=== PATIENT | female | born 1965 | race Caucasian/White ===

== ENCOUNTER 2021-12-08 17:35 | Emergency (ER) | payer BC ==
[2021-12-08 18:22] LABS: ANION GAP 7.8 meq/L (7-15); CHLORIDE,CL 102 mmol/L (98-107); ESTIMATED GFR 77 mL/min (>=60); SODIUM,NA 140 mmol/L (136-145)
[2021-12-08] MEDS ORDERED: Iopamidol 612 MG/ML 100 ML Bottle ONE (18:56)
== END 2021-12-08 20:30 | disposition home or self-care (01) ==
LOC: LL.ED 17:35
DX: K57.32 Diverticulitis of large intestine without perforation or abscess without bleeding (principal); F17.210 Nicotine dependence, cigarettes, uncomplicated; E66.9 Obesity, unspecified; Z91.041 Radiographic dye allergy status; Z90.49 Acquired absence of other specified parts of digestive tract
CPT/HCPCS: 36415; 74019; 74176; 80053; 81001; 81025; 82150; 83605; 83690; 83735; 85025; 99284

== ENCOUNTER 2022-09-07 11:06 | Emergency (ER) | payer BC ==
[2022-09-07] MEDS ORDERED: Sodium Chloride 0.9% 10 ML Syringe FLUSH PRN (11:23)
[2022-09-07] MEDS ORDERED: Cyclobenzaprine 10 MG Tab PO ONE (11:34)
[2022-09-07 11:47] LABS: ANION GAP 7.8 meq/L (7-15); CHLORIDE,CL 103 mmol/L (98-107); SODIUM,NA 140 mmol/L (136-145)
[2022-09-07 11:48] LABS: ESTIMATED GFR 84 mL/min (>=60)
[2022-09-07 13:09] LABS: CORONAVIRUS COVID-19 NAA NEGATIVE (NEGATIVE); RESPIRATORY SYNCYTIAL VIR NAA NEGATIVE (NEGATIVE)
== END 2022-09-07 13:22 | disposition home or self-care (01) ==
LOC: LL.ED 11:06
DX: M94.0 Chondrocostal junction syndrome [Tietze] (principal); E66.9 Obesity, unspecified; Z20.822 Contact with and (suspected) exposure to COVID-19; Z79.899 Other long term (current) drug therapy; Z91.041 Radiographic dye allergy status
CPT/HCPCS: 0241U; 36415; 71045; 80053; 81003; 82550; 84484; 85025; 93005; 93010; 99284; 99285; A9270-GY